=== PATIENT | male | born 1970 | race Caucasian/White ===

== ENCOUNTER 2019-03-09 06:20 | Day surgery (SDC) | payer OTHER ==
[2019-03-09] MEDS ORDERED: LIDOCAINE 2% (SDV) 5 ML INJ (07:40)
[2019-03-09] MEDS ORDERED: PROPOFOL 60 ML (07:40)
== END 2019-03-09 11:13 | disposition home or self-care (01) ==
LOC: GIL 06:20
DX: Z12.11 Encounter for screening for malignant neoplasm of colon (principal); D12.8 Benign neoplasm of rectum; E11.9 Type 2 diabetes mellitus without complications
CPT/HCPCS: 45380; 82962; 88305